=== PATIENT | male | born 1960 | race Caucasian/White ===

== ENCOUNTER 2017-09-01 07:54 | Day surgery (SDC) | payer OTHER ==
[~2017-09-01] VITALS: Ht 182.9 cm; Wt 110.2 kg
[~2017-09-01 07:54] MED LIST: AMOCLA875 PO; OXAP600 PO; OXYACE7.5T PO; STATIN MED
== END 2017-09-01 23:27 | disposition home or self-care (01) ==
LOC: ORSCMMR 07:54
PROVIDERS: Internal Medicine Gastroenterology
PROC: 0DBP8ZX Excision of Rectum, Via Natural or Artificial Opening Endoscopic, Diagnostic (ICD-10-PCS; principal; 2017-09-01 09:00)
DX: Z12.11 Encounter for screening for malignant neoplasm of colon (principal); K62.1 Rectal polyp; Z86.010 Personal history of colon polyps; Z80.0 Family history of malignant neoplasm of digestive organs; E78.00 Pure hypercholesterolemia, unspecified; Z87.891 Personal history of nicotine dependence
CPT/HCPCS: 88305; J7120